=== PATIENT | male | born 1995 | race Caucasian/White ===

== ENCOUNTER → 2018-05-15 | Outpatient (CLI) | payer BC ==
[~2018-05-15] MED LIST: CYCL10TA29 PO; IBUP800T37 PO; LOR5/325 PO; TRAM-420 PO
--- NOTE | 2018-05-15 10:12 | RADIOLOGY IMAGING REPORT ---
FACILITY: [facility] PATIENT NAME: Tommie Heller : 1995 MR: [id number] V: [id number] EXAM DATE: ORDERING PHYSICIAN: ADELSO BUSTOS TECHNOLOGIST: [place] [facility] [place] Tommie H[place] : 1995 Visit/Account:[id number] Date of Sevice: 05/15/2018 EXAMINATION: Abdominal ultrasound complete HISTORY: Right upper quadrant pain, frequent urination, back pain COMPARISON: None. FINDINGS: Gallbladder: No stones, wall thickening, pericholecystic fluid or sonographic Crockett sign. Liver: Liver is mildly enlarged at 18.35 cm in length. The liver parenchyma appears homogeneous Common duct: Normal measuring 3.2 mm. Pancreas: Not well seen due to overlying bowel gas Spleen: Borderline enlarged measuring 13.3 cm in length. Kidneys: Normal in size and echogenicity, the right measures 11.1 cm in length, and the left 11.8 cm . No hydronephrosis. Upper abdominal aorta and IVC: Negative. Ascites: None. IMPRESSION: Mild hepatomegaly Pancreas not well seen due to overlying bowel gas and borderline splenomegaly Report Dictated By: Marion Rodgers MD at 05/15/2018 10:06 AM Report E-Signed By: Marion Rodgers MD at 05/15/2018 10:08 AM WSN:[email or web address]
== END ==
LOC: US 03:09
PROVIDERS: ATTEND Nurse Practitioner Family
DX: R16.0 Hepatomegaly, not elsewhere classified (principal)
CPT/HCPCS: 76700